=== PATIENT | female | born 1970 | race American Indian/Alaskan Native ===

== ENCOUNTER 2017-12-16 15:02 | Emergency (ER) | payer MEDICAID ==
[2017-12-16 15:36] VITALS: BP 147/92
[2017-12-16 16:36] LABS: Basophils % (Auto) 0.5 % (0.0-1.8); Eosinophils # (Auto) 0.1 K/mm3 (0.0-0.4); Eosinophils % (Auto) 1.8 % (0.0-4.3); Hematocrit 40.9 % (30.3-42.9); Hemoglobin 14.4 gm/dl (10.1-14.3); Lymphocytes # (Auto) 1.6 K/mm3 (1.2-5.4); Lymphocytes % (Auto) 30.2 % (13.4-35.0); Mean Corpuscular HGB Conc 35 % (30-34); Mean Corpuscular Hemoglobin 30 pg (28-32); Mean Corpuscular Volume 85 fl (79-97); Monocytes # (Auto) 0.6 K/mm3 (0.0-0.8); Monocytes % (Auto) 10.7 % (0.0-7.3); Platelet Count 230 K/mm3 (140-440); Red Blood Count 4.81 M/mm3 (3.65-5.03); Red Cell Distribution Width 14.8 % (13.2-15.2)
[2017-12-16 16:58] LABS: Bilirubin,Urine NEG (Negative); Blood,Urine SM (Negative); Calcium Oxalate Crystals,Urine 1+; Color,Urine Yellow (Yellow); Mucus,Urine FEW /HPF; Protein,Urine <15 mg/dL mg/dL (Negative); Urobilinogen,Urine < 2.0 mg/dL (<2.0)
[2017-12-16 16:59] LABS: Alanine Aminotransferase 30 units/L (7-56); Albumin 4.1 g/dL (3.9-5); BUN/Creatinine Ratio 27; Blood Urea Nitrogen 16 mg/dL (7-17); Calcium 9.1 mg/dL (8.4-10.2); Hemolysis Index 4
--- NOTE | 2017-12-16 19:27 | Emergency Department Report ---
Blank Doc - Documentation Documentation: Patient presents to the emergency department with complaint of blood in her urine yesterday along with left flank pain. Patient states that she was concerned about the blood pressures had a complete hysterectomy and states that she not have any bleeding from the area. On exam patient has no tenderness to palpation of the abdomen and there is no CVA tenderness. CT of the abdomen will be ordered to evaluate for any pathological wheezes or kidney stone. Care will be turned over to the [facility] with me being available for consultation
--- NOTE | 2017-12-16 21:06 | Cat Scan Report ---
FINAL REPORT EXAM: CT ABDOMEN PELVIS WO CON HISTORY: left flank pain TECHNIQUE: Unenhanced stone protocol CT of the abdomen and pelvis at 2.5 millimeter axial increments. Coronal and sagittal reconstruction was also performed. PRIORS: None. FINDINGS: There is no evidence for renal calculi or hydronephrosis. No evidence for ureteral or bladder calculus is seen. No evidence for renal or bladder mass is noted. Otherwise, within the limits of a noncontrast exam, the liver, spleen, pancreas, gallbladder, and adrenal glands are unremarkable. No evidence for retroperitoneal or pelvic lymphadenopathy is seen. The bowel loops have normal caliber. No fluid collection, inflammatory change, or free air is seen within the abdomen or pelvis. The appendix is normal. Within the pelvis, the uterus has been surgically removed. Images through the upper abdomen include the lung bases which are expanded and clear. Bony structures show no focal abnormalities. IMPRESSION: 1. No evidence for renal calculi or renal obstruction. 2. Negative CT of the abdomen and pelvis.
--- NOTE | 2017-12-16 21:23 | Emergency Department Report ---
HPI - General Chief Complaint: Vaginal Bleeding Time Seen by Provider: 12/16/17 19:16 - HPI HPI: Patient presents to the emergency department with complaint of blood in her urine yesterday along with left flank pain. Patient states that she was concerned about the blood pressures had a complete hysterectomy and states that she not have any bleeding from her vagina. She denies fevers his chest has nausea vomiting/abdominal pains as chest pain or any other problems ED Past Medical Hx - Past Medical History Hx Heart Attack/AMI: Yes - Surgical History Additional Surgical History: Hysterectomy - Social History Smoking Status: Never Smoker Substance Use Type: None - Medications Home Medications: Home Medications Medication Instructions Recorded Confirmed Last Taken Type Cyclobenzaprine HCl [Flexeril 5 MG 5 mg PO TID #15 tab 09/15/15 Unknown Rx TAB] Ibuprofen [Motrin 800 MG tab] 800 mg PO Q8HR PRN #30 tablet 12/16/17 Unknown Rx Sulfamethoxazole/Trimethoprim 1 each PO BID #14 tablet 12/16/17 Unknown Rx [Bactrim DS TAB] ED Review of Systems ROS: Stated complaint: BLEEDING FROM VAGINA Other details as noted in HPI Constitutional: denies: chills, fever Eyes: denies: eye pain, eye discharge, vision change ENT: denies: ear pain, throat pain Respiratory: denies: cough, shortness of breath, wheezing Cardiovascular: denies: chest pain, palpitations Endocrine: no symptoms reported Gastrointestinal: denies: abdominal pain, nausea, diarrhea Genitourinary: denies: urgency, dysuria, discharge Musculoskeletal: denies: back pain, joint swelling, arthralgia Skin: denies: rash, lesions Neurological: denies: headache, weakness, paresthesias Psychiatric: denies: anxiety, depression Hematological/Lymphatic: denies: easy bleeding, easy bruising Physical Exam - Physical Exam Vital Signs: Vital Signs 12/16/17 15:32 Temperature 98 F Pulse Rate 94 H Respiratory 18 Rate Blood Pressure 147/92 O2 Sat by Pulse 99 Oximetry Physical Exam: GENERAL: Alert and oriented x3, no apparent distress, Normal Gait, atraumatic. HEAD: Head is normocephalic and a-traumatic. EYES: Extra ocular muscles are intact. Pupils are equal, round, and reactive to light and accommodation. NECK: Supple. Non edematous, No carotid bruits. No lymphadenopathy or thyromegaly. No C-spine tenderness LUNGS: Symetrical with respiration, No wheezing, no rales or crackles, CTAB. HEART: S1, S2 present, regular rate and rhythm without murmur, no rubs, no gallops. Non tender to palpation ABDOMEN: No organomegaly was noted,Positive bowel sounds, soft, and non- distended. . Nontender to palpation on all Quadrants, NO CVA tenderness. BACK: Full range of motion, no spinal tenderness, nontender to palpation. ED Course Vital Signs 12/16/17 15:32 Temperature 98 F Pulse Rate 94 H Respiratory 18 Rate Blood Pressure 147/92 O2 Sat by Pulse 99 Oximetry ED Medical Decision Making - Lab Data Result diagrams: 12/16/17 16:06 12/16/17 16:06 Laboratory Last Values WBC 5.4 K/mm3 (4.5-11.0) 12/16/17 16:06 RBC 4.81 M/mm3 (3.65-5.03) 12/16/17 16:06 Hgb 14.4 gm/dl (10.1-14.3) H 12/16/17 16:06 Hct 40.9 % (30.3-42.9) 12/16/17 16:06 MCV 85 fl (79-97) 12/16/17 16:06 MCH 30 pg (28-32) 12/16/17 16:06 MCHC 35 % (30-34) H 12/16/17 16:06 RDW 14.8 % (13.2-15.2) 12/16/17 16:06 Plt Count 230 K/mm3 (140-440) 12/16/17 16:06 Lymph % (Auto) 30.2 % (13.4-35.0) 12/16/17 16:06 Weber % (Auto) 10.7 % (0.0-7.3) H 12/16/17 16:06 Eos % (Auto) 1.8 % (0.0-4.3) 12/16/17 16:06 Baso % (Auto) 0.5 % (0.0-1.8) 12/16/17 16:06 Lymph # 1.6 K/mm3 (1.2-5.4) 12/16/17 16:06 Weber # 0.6 K/mm3 (0.0-0.8) 12/16/17 16:06 Eos # 0.1 K/mm3 (0.0-0.4) 12/16/17 16:06 Baso # 0.0 K/mm3 (0.0-0.1) 12/16/17 16:06 Seg Neutrophils % 56.8 % (40.0-70.0) 12/16/17 16:06 Seg Neutrophils # 3.1 K/mm3 (1.8-7.7) 12/16/17 16:06 Sodium 140 mmol/L (137-145) 12/16/17 16:06 Potassium 3.7 mmol/L (3.6-5.0) 12/16/17 16:06 Chloride 101.4 mmol/L (98-107) 12/16/17 16:06 Carbon Dioxide 25 mmol/L (22-30) 12/16/17 16:06 Anion Gap 17 mmol/L 12/16/17 16:06 BUN 16 mg/dL (7-17) 12/16/17 16:06 Creatinine 0.6 mg/dL (0.7-1.2) L 12/16/17 16:06 Estimated GFR > 60 ml/min 12/16/17 16:06 BUN/Creatinine Ratio 27 % 12/16/17 16:06 Glucose 102 mg/dL (65-100) H 12/16/17 16:06 Calcium 9.1 mg/dL (8.4-10.2) 12/16/17 16:06 Total Bilirubin 0.30 mg/dL (0.1-1.2) 12/16/17 16:06 AST 20 units/L (5-40) 12/16/17 16:06 ALT 30 units/L (7-56) 12/16/17 16:06 Alkaline Phosphatase 63 units/L (35-129) 12/16/17 16:06 Total Protein 7.5 g/dL (6.3-8.2) 12/16/17 16:06 Albumin 4.1 g/dL (3.9-5) 12/16/17 16:06 Albumin/Globulin Ratio 1.2 % 12/16/17 16:06 Urine Color Yellow (Yellow) 12/16/17 Unknown Urine Turbidity Clear (Clear) 12/16/17 Unknown Urine pH 5.0 (5.0-7.0) 12/16/17 Unknown Ur Specific [place] 1.024 (1.003-1.030) 12/16/17 Unknown Urine Protein <15 mg/dl mg/dL (Negative) 12/16/17 Unknown Urine Glucose (UA) Neg mg/dL (Negative) 12/16/17 Unknown Urine Ketones Neg mg/dL (Negative) 12/16/17 Unknown Urine Blood Sm (Negative) 12/16/17 Unknown Urine Nitrite Neg (Negative) 12/16/17 Unknown Urine Bilirubin Neg (Negative) 12/16/17 Unknown Urine Urobilinogen < 2.0 mg/dL (<2.0) 12/16/17 Unknown Ur Leukocyte Esterase Tr (Negative) 12/16/17 Unknown Urine WBC (Auto) 1.0 /HPF (0.0-6.0) 12/16/17 Unknown Urine RBC (Auto) 3.0 /HPF (0.0-6.0) 12/16/17 Unknown U Epithel Cells (Auto) 4.0 /HPF (0-13.0) 12/16/17 Unknown Calcium Oxalate Crystal 1+ 12/16/17 Unknown Urine Mucus Few /HPF 12/16/17 Unknown - Radiology Data Radiology results: report reviewed, image reviewed FINAL REPORT EXAM: CT ABDOMEN PELVIS WO CON HISTORY: left flank pain TECHNIQUE: Unenhanced stone protocol CT of the abdomen and pelvis at 2.5 millimeter axial increments. Coronal and sagittal reconstruction was also performed. PRIORS: None. FINDINGS: There is no evidence for renal calculi or hydronephrosis. No evidence for ureteral or bladder calculus is seen. No evidence for renal or bladder mass is noted. Otherwise, within the limits of a noncontrast exam, the liver, spleen, pancreas, gallbladder, and adrenal glands are unremarkable. No evidence for retroperitoneal or pelvic lymphadenopathy is seen. The bowel loops have normal caliber. No fluid collection, inflammatory change, or free air is seen within the abdomen or pelvis. The appendix is normal. Within the pelvis, the uterus has been surgically removed. Images through the upper abdomen include the lung bases which are expanded and clear. Bony structures show no focal abnormalities. IMPRESSION: 1. No evidence for renal calculi or renal obstruction. 2. Negative CT of the abdomen and pelvis. Transcribed By: [facility] Dictated By: GÓMEZ JAVED MD Electronically Authenticated By: GÓMEZ JAVED MD Signed Date/Time: 12/16/172101 - Medical Decision Making 4-year-old female presents with hematuria possibly from a UTI ED course: CBC BMP urinalysis were all ordered CT scan of abdomen and pelvis ordered. All labs within normal limits, urinalysis shows 1+ calcium oxalate and leukocyte esterase. CT scan ruled out kidney stone or any bladder stones. Discussed this with the patient and her labs and CT were all normal. This patient will be going on antibiotics and pain meds and follow up with her primary care physician. Vital signs are normal patient has no acute distress. Critical care attestation.: If time is entered above; I have spent that time in minutes in the direct care of this critically ill patient, excluding procedure time. ED Disposition Clinical Impression: Flank pain UTI (urinary tract infection) Qualifiers: Urinary tract infection type: acute cystitis Hematuria presence: with hematuria Qualified Code(s): N30.01 - Acute cystitis with hematuria Disposition: TO HOME OR SELFCARE Is pt being admited?: No Does the pt Need Aspirin: No Condition: Stable Instructions: Urinary Tract Infection in Women (ED), Acute Hematuria (ED), Flank Pain (ED), Musculoskeletal Pain (ED) Additional Instructions: Make sure to follow up with the primary care physician as discussed. Take all your medications as you've been prescribed. If you have any worsening symptoms or develop new symptoms please return to ED immediately. Prescriptions: Ibuprofen [Motrin 800 MG tab] 800 mg PO Q8HR PRN #30 tablet PRN Reason: Pain Sulfamethoxazole/Trimethoprim [Bactrim DS TAB] 1 each PO BID #14 tablet Referrals: LUCILA GRIFFITHS MD [Referring] - 3-5 Days YFN ROGERS MD [Referring] - 3-5 Days [facility] [Outside] - 3-5 Days [facility] [Outside] - 3-5 Days Forms: Accompanied Note, Work/School Release Form(ED) Time of Disposition: 21:28
== END 2017-12-16 21:35 | disposition home or self-care (01) ==
LOC: ED 15:02
DX: N39.0 Urinary tract infection, site not specified (principal)
CPT/HCPCS: 36415; 74176; 80053; 81001; 85025; 99284

== ENCOUNTER 2022-02-20 09:34 | Emergency (ER) | payer SELFPAY ==
[2022-02-20] MEDS ORDERED: KETOROLAC 10 MG TAB PO ONE (12:28)
[2022-02-20] MEDS ORDERED: CYCLOBENZAPRINE 10 MG TAB PO ONE (12:28)
[2022-02-20] MEDS ORDERED: oxyCODONE /ACETAMINOPHEN 5-325MG TAB PO ONE (12:28)
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
[2022-02-20 14:32] VITALS: BP 139/63
== END 2022-02-20 15:19 | disposition home or self-care (01) ==
LOC: ED 09:34
DX: M25.471 Effusion, right ankle (principal); M25.571 Pain in right ankle and joints of right foot; M25.511 Pain in right shoulder; I21.9 Acute myocardial infarction, unspecified; V89.2XXA Person injured in unspecified motor-vehicle accident, traffic, initial encounter; Y93.89 Activity, other specified; Y92.89 Other specified places as the place of occurrence of the external cause; Y99.8 Other external cause status
CPT/HCPCS: 99283

== ENCOUNTER 2022-02-28 18:36 | Emergency (ER) | payer SELFPAY ==
[2022-02-28] MEDS ORDERED: ACETAMINOPHEN 500 MG TAB PO ONE (22:55)
[2022-02-28] MEDS ORDERED: IBUPROFEN 600 MG TAB PO ONE (22:55)
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
[2022-03-01 01:27] VITALS: BP 132/86
== END 2022-03-01 01:57 | disposition home or self-care (01) ==
LOC: ED 18:36
DX: M54.50 Low back pain, unspecified (principal); M62.830 Muscle spasm of back; V89.2XXA Person injured in unspecified motor-vehicle accident, traffic, initial encounter; Y93.89 Activity, other specified; Y92.89 Other specified places as the place of occurrence of the external cause; Y99.8 Other external cause status
CPT/HCPCS: 72100; 99283